=== PATIENT | male | born 1955 | race Caucasian/White ===

== ENCOUNTER 2024-04-25 11:41 | Emergency (ER) | payer MEDICARE, SELFPAY ==
[2024-04-25] VITALS (11 sets, daily range): BP systolic 151–186; BP diastolic 96–130; PULSE 83–110; RESP 13–24; TEMP 36.8–37.1; O2SAT 93–98; BMI 24.3
--- NOTE | 2024-04-25 11:49 | XR_ITS ---
PROCEDURE INFORMATION: Exam: XR Chest Exam date and time: 04/25/2024 11:45 AM Age: 68 years old Clinical indication: Cough; Prior surgery; Surgery date: 6+ months; Surgery type: Stents; Additional info: Cough, SOA, former smoker, sick x 10 days TECHNIQUE: Imaging protocol: Radiologic exam of the chest. Views: 2 views. COMPARISON: No relevant prior studies available. FINDINGS: Lungs: Lungs are mildly hyperinflated. Upper lung oligemia suggestive of emphysema. Scattered small reticulonodular opacities in the bilateral lungs. Pleural spaces: Unremarkable. No pleural effusion. No pneumothorax. Heart/Mediastinum: Cardiomediastinal silhouette is unremarkable. Bones/joints: Unremarkable. IMPRESSION: 1. Lungs are mildly hyperinflated. Upper lung oligemia suggestive of emphysema. 2. Scattered small reticulonodular opacities in the bilateral lungs. Concerning for infectious (including atypical) versus inflammatory etiology. Recommend imaging follow-up to resolution.
--- NOTE | 2024-04-25 12:37 | ECG_ITS ---
APPROVED REPORT Exam: Resting ECG HR:92 bpm ECG Measurements Heart Rate 92 AXES AK 151 P 85 QRSd 89 QRS 70 QT 328 T 49 QTc 378 Conclusion SINUS RHYTHM WITH FREQUENT SUPRAVENTRICULAR PREMATURE COMPLEXES ABNORMAL RHYTHM ECG Electronically signed by : CAITLYN OSBORN, 04/25/2024 16:18:06
--- NOTE | 2024-04-25 12:40 | PC.NURSE ---
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
--- NOTE | 2024-04-25 12:48 | ED_ITS ---
Discharge Plan Disposition Patient Disposition: Home, Self-Care Condition: Good Prescriptions Prescriptions: New prednisone 20 mg tablet 40 mg PO DAILY 4 Days Qty: 8 0RF Rx Instructions: Start 04/26/2024. Take in the morning. doxycycline hyclate 100 mg tablet 100 mg PO BID 10 Days Qty: 20 0RF albuterol sulfate 90 mcg/actuation HFA aerosol inhaler 2 inh inhalation Q4H PRN (Reason: shortness of breath or wheezing) Qty: 8.5 0RF ondansetron 4 mg tablet,disintegrating 4 mg PO Q8H PRN (Reason: nausea and vomiting) 4 Days Qty: 12 0RF melatonin 10 mg tablet 10 mg PO HS PRN (Reason: sleep) Qty: 30 0RF Referrals Follow up/Referrals: Rajendra Mcdonald MD [Primary Care Provider] - See instructions Activity Restrictions/Add. Instructions Additional Instructions/Restrictions: You were evaluated in the emergency department today. 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 Follow-up closely with your primary care provider. Make sure you stay hydrated and eat a balanced diet. Return to the emergency department for new or worsening symptoms. Clinical Impressions Clinical Impression: Acute exacerbation of chronic obstructive pulmonary disease, Dehydration, Hyponatremia, Poor appetite, Sleep disturbance Stand Alone Forms Stand Alone Forms: Work/School Release Instructions Patient Instructions: DI for Chronic Obstructive Pulmonary Disease, DI for Hyponatremia, DI for Shortness of Breath, DI for Insomnia Print Language Print Language: Sinhala Discharge ED Provider: Tonya Meza General Adult HPI General Chief complaint: Shortness of Breath/Dyspnea Stated complaint: weak,soa, unable to eat/sleep Time Seen by Provider: 04/25/24 11:48 Mode of Arrival: Wheelchair Source of Information: Patient Limitations: No Limitations Description of Symptoms (Recalled from ER Triage Doc. by RN): pt presents to ED with c/o shortness of air, no appetite. pt reports he was diagnosed with flu on last saturday. pt was seen in [place] at their urgent care. pt reports he was given tamiflu and completed course. pt reports he felt better but this saturday he began to have symtpoms worsening. pt reports his brother was diagnosed with the flu but was admitted to the hosptial. History of Present Illness HPI narrative: This patient is a 68-year-old male who has history of tobacco abuse and hypertension presenting to the emergency department for evaluation concern for continued cough, lack of appetite, difficulty sleeping for about 10 days after being diagnosed with the flu last week. He states that he finished a course of Tamiflu but he still has cough. He notes that he feels like if he could just cough something up he would feel better, but he is not able to. He notes no appetite, poor oral intake, and difficulty sleeping. No chest pain, abdominal pain, changes bowel movements, or other concerns. Related Data Previous Rx's ?Medication ?Instructions ?Recorded albuterol sulfate 90 mcg/actuation 2 inh inhalation Q4H PRN shortness 04/25/24 aerosol inhaler of breath or wheezing #8.5 grams doxycycline hyclate 100 mg tablet 100 mg PO BID 10 days #20 tabs 04/25/24 melatonin 10 mg tablet 10 mg PO HS PRN sleep #30 tabs 04/25/24 ondansetron 4 mg disintegrating 4 mg PO Q8H PRN nausea and 04/25/24 tablet vomiting 4 days #12 tabs prednisone 20 mg tablet 40 mg (2 x 20 mg) PO DAILY 4 days 04/25/24 #8 tabs Allergies Allergy/AdvReac Type Severity Reaction Status Date / Time No Known Allergies Allergy Verified 04/25/24 12:22 [facility] Disclaimer: The information contained in this section may have been updated after the patient was seen, as this information can be updated by other users. Social History Smoking Status: Current every day smoker alcohol intake: never current occupational status: previously employed Travel in the last 8 weeks: None ROS Obtained: Yes All systems reviewed & no additional complaints except as documented Physical Exam General General appearance: alert and in no apparent distress Head Head exam: atraumatic and normocephalic Eye Eye exam: Present normal appearance, PERRL and EOMI ENT ENT exam: Present normal exam, normal oropharynx, mucous membranes moist and normal external ear exam Neck Neck exam: Present normal inspection, full ROM and trachea midline; Absent tenderness Chest Chest inspection: Present normal inspection and symmetric chest wall rise; Absent tenderness Respiratory Respiratory exam: Present wheezes, accessory muscle use, prolonged expiratory phase and other (Significant diminished breath sounds bilaterally with mild accessory muscle use and prolonged expiratory phase); Absent respiratory distress or stridor Cardiovascular Cardiovascular exam: Present regular rate and normal rhythm Abdominal Exam Abdominal exam: Present soft; Absent distention, tenderness or guarding Extremities Exam Extremities exam: Present normal inspection, full ROM and normal capillary refill; Absent tenderness or edema Back Exam Back exam: Present normal inspection and full ROM; Absent tenderness Neurological Exam Neurological exam: Present alert, oriented X3, CN II-XII intact and normal gait; Absent motor sensory deficit Psychiatric Psychiatric exam: Present normal affect and normal mood Skin Skin exam: Present warm and dry Medical Decision Making Medical Records Medical records reviewed: Yes I reviewed the patient's medical records. Screening: Per USPSTF and CDC recommendations, given the prevalence of disease in our region, it is our hospital?s policy to screen for HIV and viral Hepatitis for all patients aged 18 and over and those with ongoing risk factors. Sriram Inquiry Pt receiving controlled substance: No Vital Signs: 04/25/24 11:42 04/25/24 11:47 04/25/24 12:09 Temperature 98.3 F Temperature Source Oral Pulse Rate 89 86 Pulse Rate [Left Radial] 87 Respiratory Rate 20 Blood Pressure 186/117 H 181/120 H Blood Pressure [Right Arm] 186/117 H Blood Pressure Mean Blood Pressure Mean [Right Arm] 140 02 Sat by Pulse Oximetry 95 93 L 96 Oxygen Delivery Method Room Air Room Air Room Air 04/25/24 12:30 04/25/24 13:00 04/25/24 13:30 Temperature Temperature Source Pulse Rate 83 94 H 88 Pulse Rate [Left Radial] Respiratory Rate 22 20 Blood Pressure 161/101 H 173/107 H 163/115 H Blood Pressure [Right Arm] Blood Pressure Mean 135 Blood Pressure Mean [Right Arm] 02 Sat by Pulse Oximetry 95 96 98 Oxygen Delivery Method Room Air Room Air 04/25/24 14:01 04/25/24 14:30 04/25/24 15:00 Temperature Temperature Source Pulse Rate 89 96 H 106 H Pulse Rate [Left Radial] Respiratory Rate 24 13 24 Blood Pressure 151/130 H 156/96 H 174/107 H Blood Pressure [Right Arm] Blood Pressure Mean Blood Pressure Mean [Right Arm] 02 Sat by Pulse Oximetry 93 L 98 95 Oxygen Delivery Method Room Air Room Air Room Air 04/25/24 15:03 Temperature Temperature Source Pulse Rate 110 H Pulse Rate [Left Radial] Respiratory Rate 20 Blood Pressure 168/110 H Blood Pressure [Right Arm] Blood Pressure Mean Blood Pressure Mean [Right Arm] 02 Sat by Pulse Oximetry 96 Oxygen Delivery Method Room Air Lab Data Lab results reviewed: Yes I reviewed the patient's lab results. Lab Results 04/25/24 12:45: WBC 13.0 H, RBC 5.27, Hgb 15.1, Hct 44.5, MCV 84.4, MCH 28.7, MCHC 33.9, RDW 13.1, Plt Count 311, MPV 11.1 H, Neut % (Auto) 70.4, Lymph % (Auto) 11.5, [place] % (Auto) 15.0 H, Eos % (Auto) 0.2, Baso % (Auto) 0.3, Neut # (Auto) 9.1 H, Lymph # (Auto) 1.5, [place] # (Auto) 1.9 H, Eos # (Auto) 0.0, Baso # (Auto) 0.0, Sodium 127 L, Potassium 4.5, Chloride 90 L, Carbon Dioxide 32 H, Anion Gap 9.5, BUN 22 H, Creatinine 0.60 L, Estimated Creat Clear 75, Estimated GFR 135, Est GFR ( Amer) 163, Glucose 109 H, Calcium 8.8, Magnesium 1.9, Total Bilirubin 0.8, AST 31, ALT 22, Alkaline Phosphatase 116, Total Protein 6.3, Albumin 3.3 L, Globulin 3.0, Albumin/Globulin Ratio 1.1 04/25/24 12:45 04/25/24 12:45 Orders (Tests/Meds): ED MEDICATIONS Discontinued Medications Generic Name Dose Route Start Last Admin Trade Name Freq PRN Reason Stop Dose Admin Albuterol/Ipratropium 9 ml 04/25/24 12:25 04/25/24 12:55 Ipratropium/Albuterol 3 Ml Neb IH 04/25/24 12:26 9 ml ONCE ONE Administration Doxycycline Hyclate 100 mg 04/25/24 12:29 04/25/24 12:55 Doxycycline Hycl 100 Mg Tablet PO 04/25/24 12:30 100 mg ONCE ONE Administration Lactated Ringer's 1,000 mls @ 999 mls/hr 04/25/24 12:29 04/25/24 12:55 Lactated Ringer's 1000 Ml Bag IV 04/25/24 13:29 999 mls/hr .Q1H1M ONE Administration Ondansetron HCl 4 mg 04/25/24 12:29 04/25/24 12:55 Ondansetron 4mg/2ml Vial IV 04/25/24 12:30 4 mg ONCE ONE Administration Prednisone 60 mg 04/25/24 12:25 04/25/24 12:55 Prednisone 20mg Tab PO 04/25/24 12:26 60 mg ONCE ONE Administration ORDERS Category Date Time Status CXR 2 view (NOT portable) [XR chest 2V] Stat Exams 04/25/24 11:49 Completed CBC w/Auto Diff [Complete Blood Count Auto Diff] Stat Lab 04/25/24 12:45 Completed CMP [Comprehensive Metabolic Panel] Stat Lab 04/25/24 12:45 Completed MAG [Magnesium] Stat Lab 04/25/24 12:45 Completed ECG Data Tracing #1: I reviewed this ECG and interpreted as documented below: Normal sinus rhythm with a ventricular rate of 92 bpm. Frequent premature complexes without acute ST changes concerning for ischemia. Normal intervals. ECG initial impression date: 04/25/24 ECG initial impression time: 12:39 Medical Decision Narrative: In summary, this patient is a 68-year-old male presenting to the Emergency Department for evaluation of cough, poor appetite, difficulty sleeping in the setting of recent flu diagnosis. Differential diagnoses considered include but are not limited to pneumonia, COPD exacerbation, respiratory failure, viral syndrome, dehydration, electrolyte derangements. Ruling out the most morbid conditions drove assessment. It should be noted patient's history includes tobacco dependence and hypertension which are not at goal therapy. This complicates all aspects of care by increasing patient's risk for morbidity. On exam, the patient is well-appearing. He sitting upright in no acute distress. He is hypertensive but otherwise vitals are normal on cardiac telemetry with no hypoxia, tachycardia, tachypnea. He has significant diminished breath sounds bilaterally. Workup included CBC, CMP, magnesium, chest x-ray, EKG. He was given DuoNebs, prednisone, doxycycline for presumed COPD exacerbation.. I independently interpreted x-ray prior to the radiologist read and noted no large focal consolidation concerning for pneumonia. Please see their read for final interpretation. Labs were obtained that demonstrated mild leukocytosis of 13, hyponatremia with a sodium of 127 without prior for comparison. I feel the hyponatremia is likely related to the poor oral intake that he is had over the last several days with no appetite. He was given a bolus of IV fluids here and was also given Zofran, which significantly improved his symptoms. He was able to eat and drink without issue. He is feeling a lot better after administration of breathing treatments and interventions above. He states he is concerned about going home because he has not had an appetite and has not been able to sleep very well, but I advised him that his vitals are normal with exception of mild hypertension, he has no increased work of breathing, and his labs are reassuring with the exception of mild hyponatremia. He is ambulatory without neurologic issues related to this, so I feel that he is appropriate for discharge home. I advised he follow-up very closely with primary care for reassessment, especially of his sodium, and I also gave him very strict return precautions should he get worse. I discharged him with prescription for albuterol inhaler, prednisone, doxycycline, Zofran, and melatonin to see if this helps with his sleep. He was discharged in stable condition. Critical Care Critical Care Time Critical Care Time: No
[2024-04-25] MEDS: predniSONE 20MG TAB 60 MG PO (12:55)
[2024-04-25] MEDS: DOXYCYCLINE HYCL 100 MG TABLET PO (12:55)
[2024-04-25] MEDS: IPRATROPIUM/ALBUTEROL 3 ML NEB 9 ML IH (12:55)
[2024-04-25] MEDS: ONDANSETRON 4MG/2ML VIAL 4 MG IV (12:55)
[2024-04-25] MEDS: LACTATED RINGERS 1000ML 1,000 ML 999 ML IV (12:55)
[2024-04-25 13:41] LABS: Basophils % 0.3 % (0.1-2.0); Eosinophils % 0.2 % (0.1-12.0); Hematocrit 44.5 % (42.0-52.0); Hemoglobin 15.1 g/dL (14.1-18.0); Lymphocytes # 1.5 K/mm3 (0.7-4.5); Lymphocytes % 11.5 % (10-50); Mean Corpuscular HGB Conc 33.9 g/dL (31.8-35.4); Mean Corpuscular Hemoglobin 28.7 pg (27.0-31.2); Mean Corpuscular Volume 84.4 fl (80-94); Mean Platelet Volume 11.1 fl (7.4-10.4); Monocytes # 1.9 K/mm3 (0.1-1.0); Neutrophils # 9.1 K/mm3 (1.8-7.8); Neutrophils % 70.4 % (37.0-80.0); Platelet Count 311 K/mm3 (142-424); Red Blood Count 5.27 M/mm3 (4.60-6.20); Red Cell Distribution Width 13.1 % (11.5-17.5)
[2024-04-25 13:46] LABS: Alanine Aminotransferase 22 U/L (12-78); Albumin Level 3.3 g/dl (3.5-5.0); Albumin/Globulin Ratio 1.1 (1.1-1.8); Alkaline Phosphatase 116 U/L (38-126); Anion Gap 9.5 mEq/L (5-15); Aspartate Amino Transferase 31 U/L (17-59); Bilirubin,Total 0.8 mg/dl (0.2-1.3); Blood Urea Nitrogen 22 mg/dl (9-20); Calcium 8.8 mg/dl (8.4-10.2); Carbon Dioxide 32 mmol/L (22.0-30.0); Chloride 90 mmol/L (98-107); Creatinine Clearance Estimated 75 mL/min (50-200); Estimated Glomerular Filt Rate 135 ml/min (>60); GFR (African American) 163 ML/MIN (>60); Glucose 109 mg/dl (74-100); Magnesium 1.9 mg/dl (1.6-2.3); Potassium 4.5 mmoL/L (3.5-5.1); Sodium 127 mmol/L (136-145); Total Protein,Serum 6.3 g/dl (6.3-8.2)
== END 2024-04-25 15:37 | disposition home or self-care (01) ==
PROVIDERS: Emergency Provider Emergency Medicine; PCP Internal Medicine Adolescent Medicine
DX: J44.1 Chronic obstructive pulmonary disease with (acute) exacerbation (principal); R63.0 Anorexia; E87.1 Hypo-osmolality and hyponatremia; E86.0 Dehydration; G47.9 Sleep disorder, unspecified
CPT/HCPCS: 71046; 80053; 83735; 85025; 93005; 94640; 96361; 96374; 99284; J2405; J7120; J7620